=== PATIENT | male | born 1950 | race Caucasian/White ===

== ENCOUNTER → 2020-03-04 14:04 | Outpatient (BNVA) | payer MEDICARE, SELFPAY | PROVIDERS: Visit Provider Nurse Practitioner Family | DX: M54.5 Low back pain (principal); M25.551 Pain in right hip | CPT/HCPCS: 72100; 73502; 81000 ==

== ENCOUNTER → 2020-04-22 10:14 | Outpatient (BNVA) | payer MEDICARE, SELFPAY | PROVIDERS: Visit Provider Nurse Practitioner Family | DX: I10 Essential (primary) hypertension (principal) | CPT/HCPCS: 80053; 80061; 84403; 84439; 84443; 85025 ==

== ENCOUNTER → 2021-03-02 13:18 | Outpatient (BNVA) | payer MEDICARE, SELFPAY | PROVIDERS: Visit Provider Family Medicine | DX: R05.9 Cough, unspecified (principal); J40 Bronchitis, not specified as acute or chronic; Z20.822 Contact with and (suspected) exposure to COVID-19 | CPT/HCPCS: 87400; 87635 ==

== ENCOUNTER → 2021-05-31 00:01 | Outpatient (BNVA) | payer MEDICARE, SELFPAY | PROVIDERS: Visit Provider Family Medicine | DX: R79.89 Other specified abnormal findings of blood chemistry (principal) | CPT/HCPCS: 84403 ==

== ENCOUNTER → 2021-08-31 09:13 | Outpatient (BNVA) | payer MEDICARE, SELFPAY | PROVIDERS: Referring Provider Family Medicine; Visit Provider Surgery | DX: R07.89 Other chest pain (principal) | CPT/HCPCS: 99204 ==

== ENCOUNTER 2021-10-06 08:13 | Day surgery (SDC) | payer MEDICARE, SELFPAY ==
[2021-10-01 11:53] VITALS: BMI 29.1
[2021-10-06 08:52] VITALS: BP 165/105; PULSE 73; RESP 18; TEMP 36.8; O2SAT 97
[2021-10-06] MEDS: sodium chloride 0.9% 1,000 ML 30 ML IV (08:59)
--- NOTE | 2021-10-06 09:49 | ANES.PREANE2 ---
Pre-Anesthetic Assessment Height/Weight: Height 1.83 m Weight 97.522 kg Temp Pulse Resp BP Pulse Ox 98.2 F 73 18 165/105 97 10/06/21 08:52 10/06/21 08:52 10/06/21 08:52 10/06/21 08:52 10/06/21 08:52 Preop Diagnosis: upper gi symptoms Operation Date: 10/06/21 09:30 Proposed Procedures p EGD 37217/r07.9(Not Applicable) - Godwin Zhang MD Familial anesthetic complications: None Was Beta Papito taken within 24 hours: Yes Was Clonidine taken within 24 hours: N/A Last intake: Intake Last Liquid Date 10/05/21 Last Liquid Time 20:00 Last Solid Date 10/05/21 Last Solid Time 18:00 Social No alcohol and No tobacco Exam alert, oriented x 3 and regular rate & rhythm Airway Submandibular: within normal limits Cervical ROM: within normal limits Mallampati: Class II Dentition: chipped Pulmonary Asthma CV/HEM Hypertension Metabolic Hyperlipidemia and Morbid Obesity Anesthetic Plan ASA status: 3 Anesthesia: MAC Medications/Allergies Home Medications Medication Instructions Recorded Confirmed Last Taken Type triamcinolone acetonide 0.1 % 1 applic TOPICAL BID #30 g 11/25/20 10/01/21 10/05/21 Rx topical cream albuterol sulfate 90 mcg/actuation 2 inh INHALATION Q6H PRN #8.5 g 12/01/20 10/01/21 10/06/21 Rx aerosol inhaler (ProAir HFA) duloxetine 60 mg capsule,delayed 60 mg PO DAILY #90 cap 12/23/20 10/01/21 10/05/21 Rx release ketoconazole 2 % shampoo 1 applic TOPICAL .2 x weekly #120 01/21/21 10/01/21 10/05/21 Rx ml ketoconazole 2 % topical cream 1 applic TOPICAL BID #30 g 01/21/21 10/01/21 10/05/21 Rx atenolol 25 mg tablet See Rx Instructions .ROUTE 04/02/21 10/01/21 10/05/21 Rx .COMPLEX 90 Days #90 tab simvastatin 40 mg tablet 40 mg PO DAILY #30 tab 04/21/21 10/01/21 10/05/21 Rx fluticasone 250 mcg-salmeterol 50 1 inh INHALATION BID #60 each 05/12/21 10/01/21 10/05/21 Rx mcg/dose blistr powdr for inhalation (Advair Diskus) testosterone cypionate 200 mg/mL 200 mg IM .every 3 weeks #1 ml 08/25/21 10/01/21 10/05/21 Rx intramuscular oil Allergies Allergy/AdvReac Type Severity Reaction Status Date / Time No Known Allergies Allergy Verified 08/31/21 09:16 Current Medications Generic Name Dose Route Start Last Admin Trade Name Freq PRN Reason Stop Dose Admin Sodium Chloride 1,000 mls @ 30 mls/hr 10/06/21 08:45 10/06/21 08:59 Sodium Chloride 0.9% IV 10/07/21 08:44 30 mls/hr .Q24H RADHA Administration PFSH Anesthesia Medical History Asthma Depression Hyperlipidemia Surgical History (Updated 08/31/21 @ 12:30 by Godwin Zhang MD) H/O esophagogastroduodenoscopy History of dental surgery History of hemorrhoidectomy History of total right knee replacement Status post colonoscopy Social History Smoking and tobacco status: never smoked Alcohol intake: never History of recent travel: Yes Data Anesthesia Cardiac Studies: No Data to Display
--- NOTE | 2021-10-06 10:00 | W.PM.OPSFHP ---
Same Day Surgery H&P Indication for Procedure/HPI DATE OF PROCEDURE: October 06, 2021 CHIEF COMPLAINT/INDICATIONFOR SURGICAL PROCEDURE: egd PREOP DIAGNOSIS: upper gi symptoms PLANNED PROCEDURE: Operation Date: 10/06/21 09:30 Proposed Procedures p EGD 51844/r07.9(Not Applicable) - Godwin Zhang MD Medications/Allergies* Allergies/Adverse Reactions Allergy/AdvReac Type Severity Reaction Status Date / Time No Known Allergies Allergy Verified 08/31/21 09:16 Current Medications: Generic Name Dose Route Start Last Admin Trade Name Freq PRN Reason Stop Dose Admin Sodium Chloride 1,000 mls @ 30 mls/hr 10/06/21 08:45 10/06/21 08:59 Sodium Chloride 0.9% IV 10/07/21 08:44 30 mls/hr .Q24H RADHA Administration Pertinent History/Comorbid Conditions* Medical History (Updated 08/04/21 @ 10:43 by Jaiden Sanchez DO) Asthma Depression Hyperlipidemia Surgical History (Updated 08/31/21 @ 12:30 by Godwin Zhang MD) H/O esophagogastroduodenoscopy History of dental surgery History of hemorrhoidectomy History of total right knee replacement Status post colonoscopy Social History Smoking and tobacco status: never smoked Alcohol intake: never History of recent travel: Yes Pertinent Exam Findings alert, oriented x 3 and regular rate & rhythm Recommendations Surgery/Procedure today Coding Level of Care Code Acute Equity Research Associate for Jean Baca
[2021-10-06 10:34] VITALS: BP 138/84; PULSE 67; RESP 18; TEMP 36.3; O2SAT 96
--- NOTE | 2021-10-06 17:13 | ANE.PACU2 ---
Inpatient post-anesthesia follow up: Airway intact: Yes Vital signs: Temperature 97.4 F Pulse Rate 67 Respiratory Rate 18 Blood Pressure 138/84 Pulse Oximetry 96 Oxygen Delivery Me thod Room Air Oxygen Flow Rate Fraction of Inspir ed Oxygen Hydration adequate: Yes Nausea and vomiting: No Pain level: 1 Mental status: Baseline
== END 2021-10-06 10:46 | disposition home or self-care (01) ==
PROVIDERS: Visit Provider Surgery
PROC: 0DJ08ZZ Inspection of Upper Intestinal Tract, Via Natural or Artificial Opening Endoscopic (ICD-10-PCS; CPT 43235; principal; 2021-10-06 09:30)
DX: R07.9 Chest pain, unspecified (principal); K44.9 Diaphragmatic hernia without obstruction or gangrene; K29.70 Gastritis, unspecified, without bleeding; I10 Essential (primary) hypertension; E66.01 Morbid (severe) obesity due to excess calories; Z68.29 Body mass index [BMI] 29.0-29.9, adult
CPT/HCPCS: 43235; J7030

== ENCOUNTER → 2021-10-22 08:27 | Outpatient (BNVA) | payer MEDICARE, SELFPAY | PROVIDERS: PCP Family Medicine; Visit Provider Surgery | DX: K52.9 Noninfective gastroenteritis and colitis, unspecified (principal); R19.7 Diarrhea, unspecified | CPT/HCPCS: 99214 ==

== ENCOUNTER 2022-01-05 08:08 | Day surgery (SDC) | payer MEDICARE, SELFPAY ==
[2022-01-03 13:10] VITALS: BMI 28.7
[2022-01-05 08:48] VITALS: BP 158/93; PULSE 79; RESP 18; TEMP 36.2; O2SAT 95
[2022-01-05] MEDS: sodium chloride 0.9% 1,000 ML 30 ML IV (08:59)
--- NOTE | 2022-01-05 10:07 | ANES.PREANE2 ---
Pre-Anesthetic Assessment Height/Weight: Height 1.83 m Weight 96.162 kg Temp Pulse Resp BP Pulse Ox O2 Del Method 97.2 F L 79 18 158/93 95 01/05/22 08:48 01/05/22 08:48 01/05/22 08:48 01/05/22 08:48 01/05/22 08:48 01/05/22 08:48 Preop Diagnosis: diagnostic Operation Date: 01/05/22 09:45 Proposed Procedures p Colonoscopy 22376,R19.7(Not Applicable) - Godwin Zhang MD Familial anesthetic complications: none Was Beta Papito taken within 24 hours: Yes Was Clonidine taken within 24 hours: N/A Last intake: Intake Last Liquid Date 01/04/22 Last Liquid Time 20:00 Last Solid Date 01/03/22 Last Solid Time 18:00 Social No alcohol and No tobacco Exam alert, oriented x 3, clear to auscultation bilaterally and regular rate & rhythm Airway Mallampati: Class III Dentition: chipped Pulmonary Asthma CV/HEM Hypertension Metabolic Hyperlipidemia and Morbid Obesity Anesthetic Plan ASA status: 3 Anesthesia: MAC Medications/Allergies Home Medications Medication Instructions Recorded Confirmed Last Taken Type triamcinolone acetonide 0.1 % 1 applic topical BID #30 grams 11/25/20 01/05/22 10/05/21 Rx topical cream ketoconazole 2 % shampoo 1 applic topical .2 x weekly #120 01/21/21 01/05/22 10/05/21 Rx mL ketoconazole 2 % topical cream 1 applic topical BID #30 grams 01/21/21 01/05/22 12/22/21 Rx simvastatin 40 mg tablet 40 mg PO DAILY #30 tabs 04/21/21 01/05/22 11/24/21 Rx fluticasone 250 mcg-salmeterol 50 1 inh inhalation BID #60 ea 05/12/21 01/05/22 01/04/22 Rx mcg/dose blistr powdr for inhalation (Advair Diskus) diphenoxylate-atropine 2.5 1 tab PO BID PRN diarrhea 30 days 12/01/21 01/05/22 01/03/22 Rx mg-0.025 mg tablet (Lomotil) #60 tabs duloxetine 60 mg capsule,delayed 60 mg PO DAILY #90 caps 12/01/21 01/05/22 01/04/22 Rx release albuterol sulfate 90 mcg/actuation 2 inh inhalation Q6H PRN shortness 12/08/21 01/05/22 Unknown Rx aerosol inhaler (ProAir HFA) of breath or wheezing #8.5 grams testosterone cypionate 200 mg/mL 200 mg IM .every 3 weeks #1 mL 12/08/21 01/05/22 12/29/21 Rx intramuscular oil pantoprazole 40 mg tablet,delayed 40 mg PO DAILY 6 weeks #60 tabs 12/15/21 01/05/22 01/03/22 Rx release (Protonix) atenolol 25 mg tablet 25 mg PO DAILY 01/03/22 01/05/22 01/04/22 History Allergies Allergy/AdvReac Type Severity Reaction Status Date / Time No Known Allergies Allergy Verified 10/22/21 08:33 Current Medications Generic Name Dose Route Start Last Admin Trade Name Freq PRN Reason Stop Dose Admin Sodium Chloride 1,000 mls @ 30 mls/hr 01/05/22 08:45 01/05/22 08:59 Sodium Chloride 0.9% IV 01/06/22 08:44 30 mls/hr .Q24H RADHA Administration PFSH Anesthesia Medical History Asthma Depression Hyperlipidemia Surgical History H/O esophagogastroduodenoscopy (10/06/21) History of dental surgery History of hemorrhoidectomy History of total right knee replacement Status post colonoscopy Social History Smoking and tobacco status: never smoked Alcohol intake: never History of recent travel: Yes Data Anesthesia Cardiac Studies: No Data to Display
--- NOTE | 2022-01-05 10:21 | P.HP_ITS ---
Same Day Surgery H&P Indication for Procedure/HPI DATE OF PROCEDURE: January 05, 2022 CHIEF COMPLAINT/INDICATIONFOR SURGICAL PROCEDURE: colonoscopy PREOP DIAGNOSIS: diagnostic PLANNED PROCEDURE: Operation Date: 01/05/22 09:45 Proposed Procedures p Colonoscopy 66482,R19.7(Not Applicable) - Godwin Zhang MD Medications/Allergies* Home Medications Medication Instructions Recorded Confirmed Type atenolol 25 mg tablet 25 mg PO DAILY 01/03/22 01/05/22 History Allergies/Adverse Reactions Allergy/AdvReac Type Severity Reaction Status Date / Time No Known Allergies Allergy Verified 10/22/21 08:33 Current Medications: Generic Name Dose Route Start Last Admin Trade Name Freq PRN Reason Stop Dose Admin Sodium Chloride 1,000 mls @ 30 mls/hr 01/05/22 08:45 01/05/22 08:59 Sodium Chloride 0.9% IV 01/06/22 08:44 30 mls/hr .Q24H RADHA Administration Pertinent History/Comorbid Conditions* Medical History (Updated 08/04/21 @ 10:43 by Jaiden Sanchez DO) Asthma Depression Hyperlipidemia Surgical History (Updated 10/06/21 @ 10:18 by Godwin Zhang MD) H/O esophagogastroduodenoscopy (10/06/21) History of dental surgery History of hemorrhoidectomy History of total right knee replacement Status post colonoscopy Social History Smoking and tobacco status: never smoked Alcohol intake: never History of recent travel: Yes Pertinent Exam Findings alert, oriented x 3 and regular rate & rhythm Recommendations Surgery/Procedure today Coding Level of Care Code Acute Battery Container Inspector for Jean Baca
[2022-01-05 10:54] VITALS: BP 117/82; PULSE 94; RESP 18; TEMP 36.1; O2SAT 96
[2022-01-05 11:15] VITALS: BP 101/72; PULSE 91; RESP 18; O2SAT 94
--- NOTE | 2022-01-05 17:54 | ANE.PACU2 ---
Inpatient post-anesthesia follow up: Airway intact: Yes Vital signs: Temperature 97.0 F Pulse Rate 91 Respiratory Rate 18 Blood Pressure 101/72 Pulse Oximetry 94 Oxygen Delivery Me thod Room Air Oxygen Flow Rate Fraction of Inspir ed Oxygen Hydration adequate: Yes Nausea and vomiting: No Pain level: 1 Mental status: Baseline
== END 2022-01-05 11:35 | disposition home or self-care (01) ==
PROVIDERS: PCP Family Medicine; Visit Provider Surgery
PROC: 0DJD8ZZ Inspection of Lower Intestinal Tract, Via Natural or Artificial Opening Endoscopic (ICD-10-PCS; CPT 45378; principal; 2022-01-05 09:45)
DX: R19.7 Diarrhea, unspecified (principal); F32.A Depression, unspecified; E78.5 Hyperlipidemia, unspecified; J45.909 Unspecified asthma, uncomplicated; K57.30 Diverticulosis of large intestine without perforation or abscess without bleeding; K52.9 Noninfective gastroenteritis and colitis, unspecified; I10 Essential (primary) hypertension
CPT/HCPCS: 45380; 82274; 83630; 87493; 87506; 88305; J2704; J7030

== ENCOUNTER → 2022-01-11 09:41 | Outpatient (BNVA) | payer MEDICARE, SELFPAY | PROVIDERS: PCP Family Medicine; Visit Provider Surgery | DX: R19.7 Diarrhea, unspecified (principal) | CPT/HCPCS: 99212 ==

== ENCOUNTER → 2022-02-17 10:39 | Outpatient (BNVA) | payer MEDICARE, SELFPAY | PROVIDERS: PCP Family Medicine; Visit Provider Internal Medicine | DX: K52.9 Noninfective gastroenteritis and colitis, unspecified (principal); I10 Essential (primary) hypertension | CPT/HCPCS: 80053; 82784; 83516; 84443; 85025; 85651; 86140 ==

== ENCOUNTER → 2022-03-04 08:07 | Outpatient (BNVA) | payer MEDICARE, SELFPAY | PROVIDERS: PCP Family Medicine; Visit Provider Otolaryngology | DX: Z87.891 Personal history of nicotine dependence (principal); H65.02 Acute serous otitis media, left ear; H90.12 Conductive hearing loss, unilateral, left ear, with unrestricted hearing on the contralateral side | CPT/HCPCS: 99203 ==

== ENCOUNTER → 2022-08-11 10:12 | Outpatient (BNVA) | payer MEDICARE, SELFPAY | PROVIDERS: PCP Family Medicine; Visit Provider Nurse Practitioner Family | DX: R05.9 Cough, unspecified (principal) | CPT/HCPCS: 87426 ==

== ENCOUNTER → 2022-10-17 08:54 | Outpatient (BNVA) | payer MEDICARE, SELFPAY | PROVIDERS: PCP Family Medicine; Visit Provider Nurse Practitioner Family | DX: I10 Essential (primary) hypertension (principal); E29.1 Testicular hypofunction | CPT/HCPCS: 80053; 80061; 84403; 84443; 85025 ==

== ENCOUNTER → 2022-10-26 10:58 | Outpatient (BNVA) | payer MEDICARE, SELFPAY | PROVIDERS: PCP Family Medicine; Visit Provider Nurse Practitioner Family | DX: I10 Essential (primary) hypertension (principal); E29.1 Testicular hypofunction | CPT/HCPCS: 80053; 80061; 84403; 84443 ==

== ENCOUNTER → 2022-12-08 12:59 | Outpatient (BNVA) | payer MEDICARE, SELFPAY | PROVIDERS: PCP Family Medicine; Visit Provider Nurse Practitioner Family | DX: S30.860A Insect bite (nonvenomous) of lower back and pelvis, initial encounter (principal); S00.86XA Insect bite (nonvenomous) of other part of head, initial encounter; W57.XXXA Bitten or stung by nonvenomous insect and other nonvenomous arthropods, initial encounter; L90.5 Scar conditions and fibrosis of skin; Z80.8 Family history of malignant neoplasm of other organs or systems; L57.8 Other skin changes due to chronic exposure to nonionizing radiation; L85.3 Xerosis cutis; L57.0 Actinic keratosis; Z85.828 Personal history of other malignant neoplasm of skin; Z87.891 Personal history of nicotine dependence | CPT/HCPCS: 17000; 17003; 99213 ==

== ENCOUNTER 2023-03-09 11:13 | Oncology outpatient (recurring) (ONCR) | payer MEDICARE, SELFPAY ==
[2023-03-02 09:00] VITALS: BP 191/95; PULSE 73; RESP 16; TEMP 36.9; O2SAT 98
[2023-03-02 09:14] LABS: Basophils % 0.9 %; Eosinophils # 0.2 10^3/uL (0.0-0.8); Eosinophils % 3.6 %; Hematocrit 49.4 % (37-53); Lymphocytes # 1.5 10^3/uL (0.8-4.8); Lymphocytes % 31.6 %; Mean Corpuscular HGB Conc 33.2 g/dL (30-55); Mean Corpuscular Hemoglobin 30.8 pg (27-33); Mean Corpuscular Volume 92.7 fl (82-101); Mean Platelet Volume 8.8 fL (7.4-10.4); Monocytes # 0.3 10^3/uL (0.2-0.9); Monocytes % 6.6 %; Neutrophils # 2.67 10^3/uL (1.8-7.7); Neutrophils % 57.1 %; Nucleated Red Blood Cells % 0 %; Platelet Count 254 10^3/cmm (157-399); Red Blood Count 5.33 10^6/uL (3.85-5.65); Red Cell Distribution Width 14.7 % (12.1-15.1); White Blood Count 4.68 10^3/uL (3.29-11.43)
[2023-03-02 09:36] LABS: Alanine Aminotransferase 14 U/L (0-41); Albumin Level 4.3 g/dL (3.5-5.2); Alkaline Phosphatase 84 U/L (40-130); Anion Gap 11.6 (5-19); Aspartate Amino Transferase 20 U/L (0-40); Blood Urea Nitrogen 10 mg/dL (8-23); Calcium 8.9 mg/dL (8.5-10.5); Carbon Dioxide 29 mmol/L (22-29); Chloride 100 mmol/L (98-107); Globulin 3.6 g/dL (1.3-4.6); Glucose 116 mg/dL (65-115); Immunoglobulin IGG 2162 mg/dL (700-1600); Immunoglobulin IGM 40 mg/dL (40-230); Lactate Dehydrogenase 155 U/L (135-225); Osmolality Calculated 282 mOsm/kg (285-295); Potassium 4.6 mmol/L (3.5-5.1); Sodium 136 mmol/L (136-145); Total Bilirubin 0.5 mg/dL (0.15-1.2); Total Protein 7.9 g/dL (6.6-8.7)
[2023-03-02 09:39] LABS: Immunoglobulin IGA < 50 mg/dL (70-400)
[2023-03-03 10:30] LABS: Creatinine, Random Urine 15 mg/dL (20-320); Protein, Total, Random <4 mg/dL (5-25); Protein/Creatinine Ratio NOTE (0.025-0.148); Protein/Creatinine Ratio NOTE mg/g creat (25-148)
[2023-03-03 11:59] LABS: PROTEIN, TOTAL 7.7 g/dL (6.1-8.1)
[2023-03-03 13:35] LABS: KAPPA LIGHT CHAIN, FREE, SERUM 45.9 mg/L (3.3-19.4); KAPPA/LAMBDA LIGHT CHAINS FREE 7.52 (0.26-1.65); LAMBDA LIGHT CHAIN, FREE, SERU 6.1 mg/L (5.7-26.3)
[2023-03-03 15:44] LABS: ABNORMAL PROTEIN BAND 1 1.5 g/dL (NONE DETECTED); ALBUMIN 4.2 g/dL (3.8-4.8); ALPHA 1 GLOBULIN 0.3 g/dL (0.2-0.3); ALPHA 2 GLOBULIN 0.6 g/dL (0.5-0.9); BETA 1 GLOBULIN 0.3 g/dL (0.4-0.6); BETA 2 GLOBULIN 0.2 g/dL (0.2-0.5)
[2023-03-06 11:00] LABS: Albumin,Urine Random 0 %; Alpha-1-Globulins Urine Random 0 %; Alpha-2-Globulins Urine Random 0 %; Beta-Globulin,Urine Random 0 %; Gamma Globulin,Urine Random 0 %
[2023-03-10 16:34] LABS: CREATININE, 24 HOUR URINE 1.94 g/24 h (0.50-2.15); PROTEIN, TOTAL, 24 HR UR 162 mg/24 h (<150); Protein/Creatinine Ratio 0.083 (<0.100); Protein/Creatinine Ratio 83 mg/g creat (<100)
[2023-03-14 15:24] LABS: ALBUMIN 0 %; ALPHA-1-GLOBULINS 0 %; ALPHA-2-GLOBULINS 0 %; BETA GLOBULINS 0 %; GAMMA GLOBULINS 0 %
== END 2023-03-28 23:59 | disposition home or self-care (01) ==
PROVIDERS: Internal Medicine Medical Oncology; PCP Family Medicine; Visit Provider Internal Medicine Medical Oncology
DX: C90.00 Multiple myeloma not having achieved remission (principal)
CPT/HCPCS: 36415; 80053; 82570; 82784; 83615; 83883; 84155; 84156; 84165; 84166; 85025; 86334; 99204

== ENCOUNTER 2023-03-30 11:11 | Oncology outpatient (recurring) (ONCR) | payer MEDICARE, SELFPAY | END 2023-04-27 23:59 | disposition home or self-care (01) | PROVIDERS: PCP Family Medicine; Visit Provider Internal Medicine Medical Oncology | DX: C90.00 Multiple myeloma not having achieved remission (principal); Z87.891 Personal history of nicotine dependence; Z79.899 Other long term (current) drug therapy | CPT/HCPCS: 99214 ==

== ENCOUNTER 2023-05-02 14:35 | Outpatient (CLI) | payer MEDICARE, SELFPAY ==
--- NOTE | 2023-05-02 09:48 | PETR_ITS ---
PROCEDURE INFORMATION: Exam: PET/CT Whole Body Exam date and time: 05/02/2023 11:38 AM Age: 73 years old Clinical indication: Condition or disease; Primary cancer: Multiple myeloma; Initial oncological staging assessment; Additional info: Initial staging. History of bone marrow biopsy 2 weeks ago. LABS AND CLINICAL REPORTS: Glucose: 75 mg/dl Treatment strategy for malignancy (PET staging): Initial Staging (PI) TECHNIQUE: Imaging protocol: Following at least four-hour fasting and following the injection of radiopharmaceutical, low dose CT images were obtained. Then, PET images were obtained. Attenuation corrected images were constructed using the CT scan. Fused images of PET and CT were reviewed. The standardized uptake values (SUV) reported below are maximum values within a region of interest, expressed in gm/ml. Exam includes the whole body. Radiopharmaceutical: 12.63 mCi F-18 FDG (Fluorodeoxyglucose), IV. Time of imaging post radiopharmaceutical administration: 1 hour Injection site: Left hand COMPARISON: CR XR hip RT 2-3V wo/w pel* [id number] 03/04/2020 2:25 PM, lumbar spine x-ray series 03/04/2020 FINDINGS: Brain: Visualized brain has normal physiologic uptake. Salivary glands: There is mild physiologic or inflammatory appearing uptake in the bilateral parotid and submandibular glands without evidence of a discrete lesion. Pharynx: No abnormal uptake. Larynx: No abnormal uptake. Thyroid: Streak artifact somewhat limits assessment of the thyroid gland however there appears to be non radiotracer avid low-density nodule on the left measuring 2.4 x 1.8 cm on series 3, image 86. Lungs, pleura and trachea: No abnormal uptake. Heart: Normal physiologic uptake. Mediastinal space: No abnormal uptake. Liver: No abnormal uptake. Gallbladder and bile ducts: No abnormal uptake. Pancreas: No abnormal uptake. Spleen: No abnormal uptake. Adrenal glands: No abnormal uptake. Kidneys and ureters: Normal physiologic uptake. Stomach and bowel: No abnormal uptake. There are scattered colonic diverticula. Reproductive: Surgical clips in the bilateral scrotal regions are noted. No abnormal uptake. Vasculature: No abnormal uptake. Diffuse atherosclerotic changes are present. Lymph nodes: No abnormal uptake. No lymphadenopathy in the head, neck, chest, abdomen, pelvis, and extremities. Bones/joints: No abnormal uptake in the visualized axial and appendicular skeleton. Degenerative changes in the spine are noted and there is mild thoracic spine kyphosis. Mild, likely inflammatory uptake in the left hip joint capsule is noted, SUV max 3.6. There is elevated uptake in the suprapatellar region involving the right knee where there is evidence of a large joint effusion, SUV max 5.1. Artifact related to total right knee arthroplasty is present. No discrete lytic lesions are identified. Soft tissues: Uptake in the soft tissues in the bilateral supraclavicular regions involving the musculature of the lower neck is noted without a discrete lesion, likely physiologic. A small uncomplicated appearing fat containing left inguinal hernia is present. Uptake in the soft tissues between the spinous processes of C5 and C6 is noted, SUV max 5.0 without evidence of a discrete lesion, likely physiologic or inflammatory. METRICS: Mediastinal blood pool: SUV max 2.2 PET/PET WB melanoma INITIAL [id number] IMPRESSION: 1. No evidence of radiotracer avid osseous lesion. 2. Postoperative changes of total right knee arthroplasty are noted with elevated uptake in the region of a suprapatellar joint effusion. This appearance is likely inflammatory, possibly related to synovitis. A malignant etiology is a less likely consideration. 3. A non radiotracer avid left thyroid nodule appears to be present, likely benign. Consider thyroid ultrasound for further assessment. 4. Colonic diverticulosis. 5. Additional nonurgent findings as detailed above.
== END 2023-05-02 14:36 | disposition home or self-care (01) ==
LOC: RAD 14:35
PROVIDERS: PCP Family Medicine
DX: C90.00 Multiple myeloma not having achieved remission (principal); M25.461 Effusion, right knee; E04.1 Nontoxic single thyroid nodule; Z96.651 Presence of right artificial knee joint
CPT/HCPCS: 78816; A9552

== ENCOUNTER 2023-05-09 15:00 | Oncology outpatient (recurring) (ONCR) | payer MEDICARE, SELFPAY ==
[2023-05-09 14:55] LABS: Basophils % 0.8 %; Eosinophils # 0.1 10^3/uL (0.0-0.8); Hematocrit 48.3 % (37-53); Lymphocytes # 1.8 10^3/uL (0.8-4.8); Lymphocytes % 36.6 %; Mean Corpuscular HGB Conc 34.2 g/dL (30-55); Mean Corpuscular Volume 90.6 fl (82-101); Mean Platelet Volume 9.2 fL (7.4-10.4); Monocytes # 0.3 10^3/uL (0.2-0.9); Monocytes % 6.4 %; Neutrophils # 2.68 10^3/uL (1.8-7.7); Nucleated Red Blood Cells % 0 %; Platelet Count 243 10^3/cmm (157-399); Red Blood Count 5.33 10^6/uL (3.85-5.65); Red Cell Distribution Width 13.6 % (12.1-15.1); White Blood Count 4.97 10^3/uL (3.29-11.43)
[2023-05-09 15:13] LABS: Alanine Aminotransferase 15 U/L (0-41); Albumin Level 4.6 g/dL (3.5-5.2); Alkaline Phosphatase 76 U/L (40-130); Anion Gap 13.8 (5-19); Aspartate Amino Transferase 23 U/L (0-40); Blood Urea Nitrogen 11 mg/dL (8-23); Calcium 9.5 mg/dL (8.5-10.5); Carbon Dioxide 27 mmol/L (22-29); Chloride 101 mmol/L (98-107); Globulin 3.9 g/dL (1.3-4.6); Glucose 97 mg/dL (65-115); Immunoglobulin IGG 2347 mg/dL (700-1600); Immunoglobulin IGM 36 mg/dL (40-230); Osmolality Calculated 285 mOsm/kg (285-295); Potassium 3.8 mmol/L (3.5-5.1); Sodium 138 mmol/L (136-145); Total Bilirubin 0.6 mg/dL (0.15-1.2); Total Protein 8.5 g/dL (6.6-8.7)
[2023-05-09 15:21] LABS: Immunoglobulin IGA < 50 mg/dL (70-400)
[2023-05-10 10:50] LABS: PROTEIN, TOTAL 8.4 g/dL (6.1-8.1)
[2023-05-10 14:26] LABS: Creatinine, Random Urine 51 mg/dL (20-320); Protein, Total, Random 4 mg/dL (5-25); Protein/Creatinine Ratio 0.078 (0.025-0.148); Protein/Creatinine Ratio 78 mg/g creat (25-148)
[2023-05-10 16:24] LABS: ABNORMAL PROTEIN BAND 1 1.8 g/dL (NONE DETECTED); ALBUMIN 4.7 g/dL (3.8-4.8); ALPHA 1 GLOBULIN 0.3 g/dL (0.2-0.3); ALPHA 2 GLOBULIN 0.7 g/dL (0.5-0.9); BETA 1 GLOBULIN 0.3 g/dL (0.4-0.6); BETA 2 GLOBULIN 0.2 g/dL (0.2-0.5); GAMMA GLOBULIN 2.2 g/dL (0.8-1.7)
[2023-05-11 11:30] LABS: Albumin,Urine Random 0 %; Alpha-1-Globulins Urine Random 0 %; Alpha-2-Globulins Urine Random 0 %; Beta-Globulin,Urine Random 0 %; Gamma Globulin,Urine Random 0 %
[2023-05-11 13:40] LABS: KAPPA LIGHT CHAIN, FREE, SERUM 39.6 mg/L (3.3-19.4); KAPPA/LAMBDA LIGHT CHAINS FREE 6.83 (0.26-1.65); LAMBDA LIGHT CHAIN, FREE, SERU 5.8 mg/L (5.7-26.3)
== END 2023-05-28 23:59 | disposition home or self-care (01) ==
PROVIDERS: PCP Family Medicine; Visit Provider Internal Medicine
DX: C90.00 Multiple myeloma not having achieved remission (principal); D47.2 Monoclonal gammopathy; M25.559 Pain in unspecified hip; Z79.899 Other long term (current) drug therapy
CPT/HCPCS: 36415; 80053; 82570; 82784; 83883; 84155; 84156; 84165; 84166; 85025; 86334; 86335; 99214

== ENCOUNTER → 2023-06-21 06:55 | Outpatient (BNVA) | payer MEDICARE, SELFPAY | PROVIDERS: PCP Family Medicine; Visit Provider Family Medicine | DX: R79.89 Other specified abnormal findings of blood chemistry (principal) | CPT/HCPCS: 84403 ==

== ENCOUNTER 2023-08-07 14:12 | Oncology outpatient (recurring) (ONCR) | payer MEDICARE, SELFPAY ==
[2023-07-31 11:07] LABS: Basophils % 0.7 %; Eosinophils # 0.1 10^3/uL (0.0-0.8); Eosinophils % 1.2 %; Hematocrit 52.1 % (37-53); Lymphocytes # 1.8 10^3/uL (0.8-4.8); Lymphocytes % 30.2 %; Mean Corpuscular HGB Conc 33.4 g/dL (30-55); Mean Corpuscular Hemoglobin 31.1 pg (27-33); Mean Platelet Volume 9.4 fL (7.4-10.4); Monocytes # 0.4 10^3/uL (0.2-0.9); Monocytes % 7.2 %; Neutrophils # 3.51 10^3/uL (1.8-7.7); Neutrophils % 60.5 %; Nucleated Red Blood Cells % 0 %; Platelet Count 253 10^3/cmm (157-399); Red Cell Distribution Width 13.8 % (12.1-15.1)
[2023-07-31 11:33] LABS: Alanine Aminotransferase 9 U/L (0-41); Albumin Level 4.4 g/dL (3.5-5.2); Alkaline Phosphatase 82 U/L (40-130); Anion Gap 15.3 (5-19); Aspartate Amino Transferase 16 U/L (0-40); Blood Urea Nitrogen 10 mg/dL (8-23); Carbon Dioxide 27 mmol/L (22-29); Chloride 99 mmol/L (98-107); Globulin 4.2 g/dL (1.3-4.6); Glucose 103 mg/dL (65-115); Immunoglobulin IGA 51 mg/dL (70-400); Immunoglobulin IGG 2351 mg/dL (700-1600); Immunoglobulin IGM 36 mg/dL (40-230); Osmolality Calculated 283 mOsm/kg (285-295); Potassium 4.3 mmol/L (3.5-5.1); Sodium 137 mmol/L (136-145); Total Bilirubin 0.6 mg/dL (0.15-1.2); Total Protein 8.6 g/dL (6.6-8.7)
[2023-08-01 14:34] LABS: Creatinine, Random Urine 27 mg/dL (20-320); KAPPA LIGHT CHAIN, FREE, SERUM 34.3 mg/L (3.3-19.4); KAPPA/LAMBDA LIGHT CHAINS FREE 6.13 (0.26-1.65); LAMBDA LIGHT CHAIN, FREE, SERU 5.6 mg/L (5.7-26.3); Protein, Total, Random 10 mg/dL (5-25); Protein/Creatinine Ratio 370 mg/g creat (25-148)
[2023-08-02 01:39] LABS: PROTEIN, TOTAL 8.6 g/dL (6.1-8.1)
[2023-08-02 14:54] LABS: ABNORMAL PROTEIN BAND 1 1.8 g/dL (NONE DETECTED); ALBUMIN 4.7 g/dL (3.8-4.8); ALPHA 1 GLOBULIN 0.3 g/dL (0.2-0.3); ALPHA 2 GLOBULIN 0.7 g/dL (0.5-0.9); BETA 1 GLOBULIN 0.4 g/dL (0.4-0.6); BETA 2 GLOBULIN 0.2 g/dL (0.2-0.5); GAMMA GLOBULIN 2.2 g/dL (0.8-1.7)
[2023-08-11 08:34] LABS: Abnormal Protein Band 1 2 mg/dL (NONE DETECTED); Albumin,Urine Random 51 %; Alpha-1-Globulins Urine Random 7 %; Alpha-2-Globulins Urine Random 12 %; Beta-Globulin,Urine Random 9 %; Gamma Globulin,Urine Random 21 %
== END 2023-08-27 23:59 | disposition home or self-care (01) ==
PROVIDERS: PCP Family Medicine; Visit Provider Internal Medicine
DX: C90.00 Multiple myeloma not having achieved remission (principal); L57.8 Other skin changes due to chronic exposure to nonionizing radiation; L57.0 Actinic keratosis; L91.0 Hypertrophic scar; D23.71 Other benign neoplasm of skin of right lower limb, including hip; L82.1 Other seborrheic keratosis; L23.9 Allergic contact dermatitis, unspecified cause; Z85.828 Personal history of other malignant neoplasm of skin; Z86.006 Personal history of melanoma in-situ; D47.2 Monoclonal gammopathy; M25.559 Pain in unspecified hip; E29.1 Testicular hypofunction; R79.89 Other specified abnormal findings of blood chemistry; Z79.899 Other long term (current) drug therapy
CPT/HCPCS: 17000; 36415; 80053; 82570; 82784; 83883; 84155; 84156; 84165; 84166; 85025; 86334; 86335; 99214

== ENCOUNTER → 2023-08-29 12:58 | Outpatient (BNVA) | payer MEDICARE, SELFPAY | PROVIDERS: PCP Family Medicine; Visit Provider Dermatology | DX: D48.5 Neoplasm of uncertain behavior of skin (principal); L91.0 Hypertrophic scar; Z85.828 Personal history of other malignant neoplasm of skin; Z86.006 Personal history of melanoma in-situ; L57.0 Actinic keratosis; L82.1 Other seborrheic keratosis; L81.4 Other melanin hyperpigmentation | CPT/HCPCS: 11102; 11900; 17000; 99213 ==

== ENCOUNTER → 2023-09-28 09:53 | Outpatient (BNVA) | payer MEDICARE, SELFPAY | PROVIDERS: PCP Family Medicine; Visit Provider Dermatology | DX: L57.0 Actinic keratosis (principal); L91.0 Hypertrophic scar; L82.1 Other seborrheic keratosis; Z85.828 Personal history of other malignant neoplasm of skin; Z86.006 Personal history of melanoma in-situ | CPT/HCPCS: 17000; 99213 ==

== ENCOUNTER 2023-11-09 07:33 | Oncology outpatient (recurring) (ONCR) | payer MEDICARE, SELFPAY ==
[2023-11-02 10:12] LABS: Basophils % 0.6 %; Eosinophils # 0.1 10^3/uL (0.0-0.8); Eosinophils % 2.4 %; Hematocrit 49.6 % (37-53); Lymphocytes # 1.5 10^3/uL (0.8-4.8); Lymphocytes % 30.2 %; Mean Corpuscular HGB Conc 34.1 g/dL (30-55); Mean Corpuscular Hemoglobin 32.2 pg (27-33); Mean Corpuscular Volume 94.5 fl (82-101); Mean Platelet Volume 9.4 fL (7.4-10.4); Monocytes # 0.4 10^3/uL (0.2-0.9); Monocytes % 7.6 %; Neutrophils # 2.93 10^3/uL (1.8-7.7); Nucleated Red Blood Cells % 0 %; Platelet Count 210 10^3/cmm (157-399); Red Blood Count 5.25 10^6/uL (3.85-5.65); Red Cell Distribution Width 14.7 % (12.1-15.1); White Blood Count 4.97 10^3/uL (3.29-11.43)
[2023-11-02 10:30] LABS: Alanine Aminotransferase 12 U/L (0-41); Alkaline Phosphatase 68 U/L (40-130); Anion Gap 13.8 (5-19); Aspartate Amino Transferase 17 U/L (0-40); Blood Urea Nitrogen 7 mg/dL (8-23); Calcium 8.6 mg/dL (8.5-10.5); Carbon Dioxide 27 mmol/L (22-29); Chloride 101 mmol/L (98-107); Globulin 3.8 g/dL (1.3-4.6); Glucose 98 mg/dL (65-115); Immunoglobulin IGG 2083 mg/dL (700-1600); Immunoglobulin IGM 31 mg/dL (40-230); Osmolality Calculated 284 mOsm/kg (285-295); Potassium 3.8 mmol/L (3.5-5.1); Sodium 138 mmol/L (136-145); Total Bilirubin 0.4 mg/dL (0.15-1.2); Total Protein 7.8 g/dL (6.6-8.7)
[2023-11-02 10:32] LABS: Immunoglobulin IGA < 50 mg/dL (70-400)
[2023-11-03 08:31] LABS: PROTEIN, TOTAL 7.7 g/dL (6.1-8.1)
[2023-11-03 12:15] LABS: KAPPA LIGHT CHAIN, FREE, SERUM 39.2 mg/L (3.3-19.4); KAPPA/LAMBDA LIGHT CHAINS FREE 7.54 (0.26-1.65); LAMBDA LIGHT CHAIN, FREE, SERU 5.2 mg/L (5.7-26.3)
[2023-11-03 15:30] LABS: ABNORMAL PROTEIN BAND 1 1.6 g/dL (NONE DETECTED); ALBUMIN 4.3 g/dL (3.8-4.8); ALPHA 1 GLOBULIN 0.3 g/dL (0.2-0.3); ALPHA 2 GLOBULIN 0.6 g/dL (0.5-0.9); BETA 1 GLOBULIN 0.4 g/dL (0.4-0.6); BETA 2 GLOBULIN 0.2 g/dL (0.2-0.5)
[2023-11-04 22:45] LABS: Creatinine, Random Urine 19 mg/dL (20-320); Protein, Total, Random <4 mg/dL (5-25); Protein/Creatinine Ratio NOTE (0.025-0.148); Protein/Creatinine Ratio NOTE mg/g creat (25-148)
[2023-11-07 15:44] LABS: Albumin,Urine Random 0 %; Alpha-1-Globulins Urine Random 0 %; Alpha-2-Globulins Urine Random 0 %; Beta-Globulin,Urine Random 0 %; Gamma Globulin,Urine Random 0 %
== END 2023-11-26 23:59 | disposition home or self-care (01) ==
PROVIDERS: PCP Nurse Practitioner Family; Visit Provider Internal Medicine
DX: C90.00 Multiple myeloma not having achieved remission (principal); D47.2 Monoclonal gammopathy; Z79.899 Other long term (current) drug therapy
CPT/HCPCS: 36415; 80053; 82570; 82668; 82784; 83883; 84155; 84156; 84165; 84166; 85025; 86334; 86335; 99214

== ENCOUNTER 2024-02-14 08:56 | Oncology outpatient (recurring) (ONCR) | payer MEDICARE, SELFPAY ==
[2024-02-07 09:11] LABS: Basophils % 0.7 %; Eosinophils # 0.1 10^3/uL (0.0-0.8); Eosinophils % 1.8 %; Hematocrit 55.8 % (37-53); Lymphocytes # 1.3 10^3/uL (0.8-4.8); Lymphocytes % 21.5 %; Mean Corpuscular HGB Conc 33.7 g/dL (30-55); Mean Corpuscular Hemoglobin 31.3 pg (27-33); Mean Platelet Volume 9.6 fL (7.4-10.4); Monocytes # 0.5 10^3/uL (0.2-0.9); Monocytes % 7.5 %; Neutrophils # 4.12 10^3/uL (1.8-7.7); Neutrophils % 68.2 %; Nucleated Red Blood Cells % 0 %; Platelet Count 199 10^3/cmm (157-399); Red Cell Distribution Width 13.2 % (12.1-15.1); White Blood Count 6.04 10^3/uL (3.29-11.43)
[2024-02-07 09:47] LABS: Alanine Aminotransferase 10 U/L (0-41); Albumin Level 4.3 g/dL (3.5-5.2); Alkaline Phosphatase 66 U/L (40-130); Anion Gap 11.8 (5-19); Aspartate Amino Transferase 19 U/L (0-40); Blood Urea Nitrogen 8 mg/dL (8-23); Calcium 8.6 mg/dL (8.5-10.5); Carbon Dioxide 28 mmol/L (22-29); Chloride 100 mmol/L (98-107); Globulin 3.9 g/dL (1.3-4.6); Glucose 101 mg/dL (65-115); Immunoglobulin IGA 51 mg/dL (70-400); Immunoglobulin IGG 2416 mg/dL (700-1600); Immunoglobulin IGM 32 mg/dL (40-230); Osmolality Calculated 280 mOsm/kg (285-295); Potassium 3.8 mmol/L (3.5-5.1); Sodium 136 mmol/L (136-145); Total Bilirubin 0.6 mg/dL (0.15-1.2); Total Protein 8.2 g/dL (6.6-8.7)
[2024-02-08 06:53] LABS: PROTEIN, TOTAL 8.4 g/dL (6.1-8.1)
[2024-02-08 11:49] LABS: KAPPA LIGHT CHAIN, FREE, SERUM 40.1 mg/L (3.3-19.4); KAPPA/LAMBDA LIGHT CHAINS FREE 9.55 (0.26-1.65); LAMBDA LIGHT CHAIN, FREE, SERU 4.2 mg/L (5.7-26.3)
[2024-02-08 15:15] LABS: ALBUMIN 4.6 g/dL (3.8-4.8); ALPHA 1 GLOBULIN 0.3 g/dL (0.2-0.3); ALPHA 2 GLOBULIN 0.7 g/dL (0.5-0.9); BETA 1 GLOBULIN 0.4 g/dL (0.4-0.6); BETA 2 GLOBULIN 0.2 g/dL (0.2-0.5); GAMMA GLOBULIN 2.2 g/dL (0.8-1.7)
--- NOTE | 2024-02-14 10:05 | XRR_ITS ---
PROCEDURE INFORMATION: Exam: XR Lumbosacral Spine Exam date and time: 02/14/2024 10:11 AM Age: 74 years old Clinical indication: Low back pain; Patient HX: HX of multiple myeloma, skin cancer; Additional info: Lumbar spine pain TECHNIQUE: Imaging protocol: Radiologic exam of the lumbosacral spine. Views: 2 or 3 views. COMPARISON: CR XR lumbar spine 2-3V* [id number] 03/04/2020 2:19 PM FINDINGS: Bones/joints: Minimal loss of height of L3 with slightly heterogeneous bone density. The degree of loss of height of L3 is probably unchanged, perhaps minimally greater. Density of L3 is slightly diminished and heterogeneous when compared to before, in the setting of multiple myeloma early vertebral body involvement could be present. Consider MRI for further evaluation. L3-L4 disc space narrowing and mild anterior spurring. The pedicles are intact. The perivertebral soft tissues are normal.. No acute fracture. Normal alignment. Soft tissues: Unremarkable. XR/XR lumbar spine 2-3V* [id number] IMPRESSION: Slightly overall diminished and slightly heterogeneous L3 bone density. Consider MRI.
--- NOTE | 2024-02-14 10:05 | XRR_ITS ---
PROCEDURE INFORMATION: Exam: XR Thoracic Spine Exam date and time: 02/14/2024 10:11 AM Age: 74 years old Clinical indication: Pain in thoracic spine; Patient HX: HX of multiple myeloma, skin cancer; Additional info: Thoracic spine pain TECHNIQUE: Imaging protocol: Radiologic exam of the thoracic spine. Views: 3 views. COMPARISON: PT PET WB melanoma INITIAL [id number] 05/02/2023 11:38 AM FINDINGS: Bones/joints: Diffuse demineralization. Mild marginal spurring. The pedicles are intact. . No acute fracture. Normal alignment. Soft tissues: Unremarkable. XR/XR thoracic spine 2V [id number] IMPRESSION: No acute findings.
== END 2024-02-26 23:59 | disposition home or self-care (01) ==
PROVIDERS: PCP Nurse Practitioner Family; Visit Provider Nurse Practitioner Family
DX: D47.2 Monoclonal gammopathy (principal); Z79.899 Other long term (current) drug therapy
CPT/HCPCS: 36415; 72070; 72100; 80053; 82784; 83883; 84155; 84165; 85025; 99214

== ENCOUNTER → 2024-02-22 13:00 | Outpatient (BNVA) | payer MEDICARE, SELFPAY | PROVIDERS: PCP Nurse Practitioner Family; Visit Provider Nurse Practitioner Family | DX: R79.89 Other specified abnormal findings of blood chemistry (principal) | CPT/HCPCS: 84403 ==

== ENCOUNTER → 2024-09-11 10:00 | Outpatient (BNVA) | payer MEDICARE, SELFPAY | PROVIDERS: PCP Nurse Practitioner Family; Visit Provider Nurse Practitioner Family | DX: R79.89 Other specified abnormal findings of blood chemistry (principal); I10 Essential (primary) hypertension | CPT/HCPCS: 80053; 80061; 84403 ==

== ENCOUNTER → 2024-12-11 09:15 | Outpatient (BNVA) | payer MEDICARE, SELFPAY | PROVIDERS: PCP Nurse Practitioner Family; Visit Provider Nurse Practitioner Family | DX: R79.89 Other specified abnormal findings of blood chemistry (principal) | CPT/HCPCS: 84403 ==

== ENCOUNTER → 2025-03-10 08:58 | Outpatient (BNVA) | payer MEDICARE, SELFPAY | PROVIDERS: PCP Nurse Practitioner Family; Visit Provider Nurse Practitioner Family | DX: I10 Essential (primary) hypertension (principal); E29.1 Testicular hypofunction | CPT/HCPCS: 80053; 80061; 84403 ==